=== PATIENT | female | born 1985 | race African-American/Black ===

== ENCOUNTER 2017-03-05 14:23 | Emergency (ER) | payer SELFPAY ==
[~2017-03-05] VITALS: Ht 172.7 cm; Wt 139.0 kg
[~2017-03-05 14:23] MED LIST: CYCL-108; HYDR-523; PREN1CAP13 PO
[2017-03-05 15:29] LABS: BASOPHILS % 0.1 % (0.0-2.0); HEMATOCRIT. 36.4 % (36.0-48.0); HEMOGLOBIN. 12.5 g/dL (12.0-16.0); LYMPHOCYTES % 34.2 % (20.0-50.0); MEAN CORPUSCULAR VOLUME 72.8 fL (81.0-99.0); MEAN PLATELET VOLUME 8.9 fl (7.4-10.4); MONOCYTES % 7.6 % (2.0-8.0); NEUTROPHILS % 56.1 % (40.0-76.0); PLATELET 268 x1000/uL (130-400); RED BLOOD CELL COUNT 5.01 mill/uL (4.2-5.4); RED CELL DISTRIBUTION WIDTH 15.6 % (11.6-14.6)
[2017-03-05 15:38] LABS: HCG SCREEN NEGATIVE
[2017-03-05 15:45] LABS: CARBON DIOXIDE 27 mEq/L (21-32); CHLORIDE 107 mEq/L (98-107); TROPONIN I < 0.02 ng/mL (0.00-0.04)
[2017-03-05] MEDS ORDERED: KETOROLAC 15MG/ML VIAL IV ONE (18:30)
[2017-03-05 19:23] VITALS: BP 149/84
== END 2017-03-05 19:45 | disposition home or self-care (01) ==
LOC: ER 14:46
DX: R07.89 Other chest pain (principal); F41.1 Generalized anxiety disorder; R03.0 Elevated blood-pressure reading, without diagnosis of hypertension; D72.829 Elevated white blood cell count, unspecified; F17.210 Nicotine dependence, cigarettes, uncomplicated; Z71.6 Tobacco abuse counseling; F12.90 Cannabis use, unspecified, uncomplicated; E66.9 Obesity, unspecified; Z68.42 Body mass index [BMI] 45.0-49.9, adult
CPT/HCPCS: 36415; 71010; 80053; 84484; 84703; 85025; 93005; 96374; 99285; 99406; J1885; Z7610

== ENCOUNTER 2017-04-27 10:38 | Emergency (ER) | payer SELFPAY ==
[~2017-04-27] VITALS: Ht 172.7 cm; Wt 139.0 kg
[2017-04-27 10:51] VITALS: BP 116/74
[2017-04-27] MEDS ORDERED: NO HOME MEDICATIONS (10:53)
== END 2017-04-27 12:00 | disposition home or self-care (01) ==
LOC: ER 10:38
DX: Z00.00 Encounter for general adult medical examination without abnormal findings (principal); F41.9 Anxiety disorder, unspecified; F12.10 Cannabis abuse, uncomplicated
CPT/HCPCS: 99281

== ENCOUNTER 2017-07-07 17:06 | Emergency (ER) | payer MEDICAID ==
[~2017-07-07] VITALS: Ht 175.3 cm; Wt 139.0 kg
[~2017-07-07 17:06] MED LIST changes: -CYCL-108; -HYDR-523; +NO HOME MEDICATIONS; -PREN1CAP13 PO
[2017-07-07 22:13] VITALS: BP 122/70
== END 2017-07-07 22:14 | disposition home or self-care (01) ==
LOC: ER 18:00
DX: S39.012A Strain of muscle, fascia and tendon of lower back, initial encounter (principal); B07.0 Plantar wart; M25.561 Pain in right knee; F41.9 Anxiety disorder, unspecified; F12.10 Cannabis abuse, uncomplicated; V89.2XXA Person injured in unspecified motor-vehicle accident, traffic, initial encounter; Y93.89 Activity, other specified; Y92.89 Other specified places as the place of occurrence of the external cause; Y99.8 Other external cause status
CPT/HCPCS: 99283; L1830; Z7610; 29505

== ENCOUNTER 2018-02-08 10:24 | Emergency (ER) | payer SELFPAY ==
[~2018-02-08] VITALS: Ht 172.7 cm; Wt 139.0 kg
[2018-02-08 12:09] LABS: BASOPHILS % 0.9 % (0.0-2.0); EOSINOPHILS % 2.8 % (0.0-5.0); HEMATOCRIT. 37.2 % (36.0-48.0); MEAN CORPUSCULAR HEMOGLOBIN 26.3 pg (28.0-32.0); MEAN CORPUSCULAR VOLUME 75.1 fL (81.0-99.0); MEAN PLATELET VOLUME 8.6 fl (7.4-10.4); MONOCYTES % 6.5 % (2.0-8.0); NEUTROPHILS % 65.8 % (40.0-76.0); PLATELET 287 x1000/uL (130-400); RED BLOOD CELL COUNT 4.95 mill/uL (4.2-5.4); RED CELL DISTRIBUTION WIDTH 15.2 % (11.6-14.6)
[2018-02-08 12:16] LABS: CHLORIDE 109 mEq/L (98-107)
[2018-02-08 15:13] VITALS: BP 150/73
== END 2018-02-08 15:20 | disposition home or self-care (01) ==
LOC: ER 10:41
DX: R60.9 Edema, unspecified (principal); E66.9 Obesity, unspecified; R03.0 Elevated blood-pressure reading, without diagnosis of hypertension
CPT/HCPCS: 36415; 71045; 80048; 81025; 83880; 85025; 93005; 93970; 99285

== ENCOUNTER 2018-02-13 04:45 | Emergency (ER) | payer SELFPAY ==
[~2018-02-13] VITALS: Ht 172.7 cm; Wt 139.0 kg
[2018-02-13 08:13] VITALS: BP 125/71
== END 2018-02-13 08:56 | disposition home or self-care (01) ==
LOC: ER 04:45
DX: R60.0 Localized edema (principal); M79.89 Other specified soft tissue disorders; R03.0 Elevated blood-pressure reading, without diagnosis of hypertension; E66.01 Morbid (severe) obesity due to excess calories; F17.200 Nicotine dependence, unspecified, uncomplicated; Z68.42 Body mass index [BMI] 45.0-49.9, adult; Z98.890 Other specified postprocedural states
CPT/HCPCS: 99283; Z7610

== ENCOUNTER 2018-08-08 17:39 | Emergency (ER) | payer MEDICAID ==
[~2018-08-08] VITALS: Ht 175.3 cm; Wt 143.0 kg
[2018-08-08 18:14] VITALS: BP 145/79
== END 2018-08-08 20:20 | disposition left against medical advice (07) ==
LOC: ER 17:39
DX: Z53.21 Procedure and treatment not carried out due to patient leaving prior to being seen by health care provider (principal)